=== PATIENT | female | born 2000 | race Caucasian/White ===

== ENCOUNTER 2025-02-24 13:40 | Outpatient (AMB) | payer BC, MEDICAID, SELFPAY ==
[2025-02-24 14:05] VITALS: BP 109/68; PULSE 68; RESP 16; TEMP 36.2; O2SAT 98; BMI 30.2
--- NOTE | 2025-02-24 14:05 | AMB.OBINITIA ---
Vital Signs 02/24/25 14:05 Height 1.5 m Height Method Stated Weight 68.039 kg Weight Measurement Method Standing Scale BMI 30.2 BP 109/68 Blood Pressure Source Automatic Cuff Blood Pressure Location Right Upper Arm Position Sitting Respiration 16 Pulse 68 Pulse Source Monitor Temp 97.1 F Temp Source Oral Pulse Oximetry (%) 98 Oxygen Delivery Method Room Air Allergies/Home Meds Allergies & Medications Allergies No Known Allergies Allergy (Verified 02/24/25 14:06) Medication Reconciliation No Known Home Medications 02/24/25 [History Confirmed 02/24/25] Intake Visit Data Collection New Patient or Established: New Patient (never been to [facility]) Reason for Visit:: INITIAL CARE Seen by Clinical Staff ONLY (RN/MA): No Camp Program Director Required: No Do You Feel Safe at Home: Yes Authorities Contacted: N/A PCP or OBGYN visit in last 3 months: No Hx Now: Yes Are you currently on any form of Control: No Last menstrual period: 11/06/24 Pain Present Currently: No Pain Scale Used: Paul-Lopez/Numerical Pain scale:: 0 Smoking Status Smoking Status: Never smoker Questionnaires Covid-19 Vaccine Questionnaire Has patient been vacinated for Covid-19 Have you been vacinated for Covid-19: Yes PHQ-9 PHQ-2 Over the last 2 weeks, how often have you been bothered by any of the following problems? 1. Little interest or pleasure in doing things: not at all 2. Feeling down, depressed, or hopeless: not at all Total score: 0 PHQ-9 3. Trouble falling or staying asleep, or sleeping too much: Not at all 4. Feeling tired or having little energy: Not at all 5. Poor appetite or overeating: Not at all 6. Feeling bad about yourself - or that you are a failure or have let yourself or your family down: Not at all 7. Trouble concentrating on things, such as reading the newspaper or watching television: Not at all 8. Moving or speaking so slowly that other people could have noticed? - Or the opposite - being so fidgety or restless that you have been moving around a lot more than usual: not at all 9. Thoughts that you would be better off or of hurting yourself in some way: Not at all Total score: 0 Source: Developed by Drs. Bennie Waldron, Linsey Pimentel, Garry Delgado and colleagues, with an educational khanh from [employer]. Depression screen completed yes Social History Living Situation History Marital Status: Single Lives With: Family Housing: House Housing Other:: Patient stays at home. She has a 9 y/o girl, and a 4 y/o son and 1 y/o son Tobacco History Smoking Status: Never smoker Second Hand Smoke Exposure: No Alcohol History Alcohol Intake: Never Domestic Abuse History Do You Feel Safe at Home: Yes History of Present Illness HPI Narrative The patient is a 24-year-old -0-0-3 history of vaginal delivery x 3 in the past delivered all her babies at [facility] and was my patient in [place]. She comes for a new OB. She is still breast-feeding her 8-month-old. She reports that food does not taste good. She is not vomiting a lot. She denies any vaginal bleeding or cramping. She does not really want to take any medication for her nausea. She is present with the father of the baby. OB Ultrasound Indication Indication: Size, dates, viability OB Ultrasound Ultrasound technique: transabdominal Gestational sac assessment: Presence, location, size, shape: Live intrauterine with a crown-rump length of 9.93 cm corresponding to 15 weeks 5 days. Cardiac activity noted at 147 bpm. Good movement noted. 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 She has a history of vaginal delivery x 3 in the past without complications. Her last baby was so fast she almost delivered in triage. Other Relevant History: Only significant for anxiety. OB Initial Visit OB Flowsheet OB Flowsheet Initial Weight: Not Recorded Date <del>?</del> EGA Weight BP Alb Glu CTX Pres Fundal ht FHR Mov Dilation Station Effacement Hx Notes Visit Note 02/24/25 <del>?</del> 15w 5d 68.039 kg 109/68 absent transverse 16 147 absent New OB visit. Patient has an 8-month at home and is not due for a Pap smear. No contractions or loss of fluids or vaginal bleeding. Mild nausea. Menstrual History Menstrual reliability: definite Flow: normal Menstrual regularity: regular Monthly: Yes Age at menarche: 11 On control pills at conception: No Date of positive home test: 12/28/24 Associated symptoms (LMP): Reports nausea, vomiting, fatigue and breast tenderness OB History : 4 Para: 3 Hx Total # of Abortions (Spontaneous & Elective): 0 # of Living Children: 3 Delivery History 1st : Child's name: HAYDEE date: 12/02/15 sex: female Delivery type: vaginal Delivery complications: NONE History of depression before or after : No 2nd : Child's name: CASSIUS date: 05/21/21 sex: male Delivery type: vaginal Delivery complications: NONE History of depression before or after : No 3rd : Child's name: JONO date: 06/16/24 sex: male Delivery type: vaginal Delivery complications: NONE History of depression before or after : No Infection History & Risk Evaluation History of STDs: none Genetic Screening & History Genetic Screening/Teratology Counseling - Includes patient, baby's father, or anyone in either family with: 1. Patient's age 35 years or older as of estimated date of delivery: No 2. Thalassemia (Ukrainian, Solomon Islander, Mediterranean, or Background); MCV less than 80: No 3. Neural Tube Defect (Meningomyelocele, Spina Bifida, or Anencephaly): No 4. Congenital Heart Defect: No 5. Down Syndrome: No 6. Tavo-Sachs (Ashkenazi Restorationism, Cajun, Pashto Aston): No 7. Deloris Disease (Ashkenazi Restorationism): No 8. Familial Dysautonomia (Ashkenazi Restorationism): No 9. Sickle Cell Disease or Trait (): No 10. Hemophilia or other blood disorders: No 11. Muscular Dystrophy: No 12. Cystic Fibrosis: No 13. Alexander's Chorea: No 14. Mental Retardation/Autism: No 15. Other inherited genetic or chromosomal disorder: No 16. Maternal Metabolic Disorder (EG,TYPE 1 Diabetes, PKU): No 17. Patient or baby's father had a child with defects not listed above: No 18. Recurrent loss or a stillbirth: No 19. Medications (including supplements, vitamins, herbs or otc drugs)/illicit/recreational drugs/alcohol since last menstrual period: No 20. Any other: No Infection History 1. Live with someone with TB or exposed to TB: No 2. Rash or viral illness since last menstrual period: No 3. Hepatitis B,C: No Other (see comments) Source: [employer] Review of Systems Constitutional Constitutional: Reports fatigue Gastrointestinal Gastrointestinal: Reports nausea and Reports vomiting Endocrine Endocrine: Reports fatigue Exam Narrative Physical exam: Pap and pelvic exam deferred until . General Limitations: no limitations General Appearance: alert, in no apparent distress, comfortable, cooperative, healthy appearing, well developed, well groomed and other (A little pale) Chest Chest inspection: Present normal inspection and symmetric chest wall rise Resp Respiratory exam: Present normal lung sounds bilaterally Card Cardiovascular exam: Present regular rate, normal rhythm and normal heart sounds Abdominal Abdominal exam: Present soft and normal bowel sounds Extremities Extremities exam: Present normal inspection and full ROM Psych Psychiatric exam: Present normal affect and normal mood Skin Skin exam: Present warm, dry, intact and normal color Office Procedures OB Clinic LOC & Office Proc's Nursing/Assessment Patient Status: Initial/New Patient OB Clinic Nursing Assessment: Medication Reconciliation, Update PMH in EMR and Vital Signs OB Clinic Coordination of Care: Complex Care and Chronic Disease 1-5, Consent,records obtained, informed consent, Education Simp Pt/Fam, Lab and Imaging orders, Results/Orders obtained and Staff clarify orders Special Needs: Heart tones Miscellaneous Interventions: Pelvic/Pap Smear Set up New Patient Charge New Patient Point Assignment: [id number] New Patient Point Charge: ENGINEERING WRITER Level 4 ([id number]) In Clinic Procedures Pap Smear: Yes Bedside Ultrasounds US Transvaginal at bedside: Yes Assessment & Plan Diagnosis / Problem List (1) : Status: Acute Qualifiers: Weeks of gestation: 15 weeks Qualified Code(s): Z3A.15 - 15 weeks gestation of Assessment and Plan: Ordered labs. Ordered GC chlamydia off urine. Start vitamins. Hold on iron right now as patient is nauseous. Encourage frequent small meals. Offered antiemetics for nausea. Patient declines. Encouraged extra 800 remy a day with and breast-feeding in order to make adequate milk. Offered NIPT which patient declines. Follow-up in 4 weeks.
== END 2025-02-24 14:44 | disposition home or self-care (01) ==
LOC: HODSOBC 13:40
PROVIDERS: PCP Obstetrics & Gynecology; Referring Provider Obstetrics & Gynecology; Supervising Provider Obstetrics & Gynecology; Visit Provider Obstetrics & Gynecology
DX: Z34.82 Encounter for supervision of other normal pregnancy, second trimester (principal); Z3A.15 15 weeks gestation of pregnancy
CPT/HCPCS: 76817; 99204; Q0091; G0463

== ENCOUNTER 2025-03-31 13:24 | Outpatient (AMB) | payer MEDICAID, SELFPAY ==
[2025-03-31 13:36] VITALS: BP 108/73; PULSE 96; RESP 18; TEMP 36.5; O2SAT 96; BMI 31.5
--- NOTE | 2025-03-31 13:36 | OBCLNT_ITS ---
Vital Signs 03/31/25 13:36 Height 1.5 m Height Method Stated Weight 70.931 kg Weight Measurement Method Standing Scale BMI 31.5 BP 108/73 Blood Pressure Source Automatic Cuff Blood Pressure Location Left Upper Arm Position Sitting Respiration 18 Pulse 96 Pulse Source Monitor Temp 97.7 F Temp Source Oral Pulse Oximetry (%) 96 Oxygen Delivery Method Room Air Allergies/Home Meds Allergies & Medications Allergies No Known Allergies Allergy (Verified 03/31/25 13:40) Medication Reconciliation No Known Home Medications 02/24/25 [History Confirmed 03/31/25] Intake Visit Data Collection New Patient or Established: Established Patient (seen at [facility] within 3 years) Reason for Visit:: care Seen by Clinical Staff ONLY (RN/MA): No Clipper And Turner Required: No Do You Feel Safe at Home: Yes Authorities Contacted: N/A PCP or OBGYN visit in last 3 months: Yes Hx Now: Yes Are you currently on any form of Control: No Pain Present Currently: No Pain Scale Used: Paul-Lopez/Numerical Pain scale:: 0 Smoking Status Smoking Status: Never smoker Questionnaires Covid-19 Vaccine Questionnaire Has patient been vacinated for Covid-19 Have you been vacinated for Covid-19: Yes PHQ-9 PHQ-2 Over the last 2 weeks, how often have you been bothered by any of the following problems? 1. Little interest or pleasure in doing things: not at all 2. Feeling down, depressed, or hopeless: not at all Total score: 0 PHQ-9 3. Trouble falling or staying asleep, or sleeping too much: Not at all 4. Feeling tired or having little energy: Not at all 5. Poor appetite or overeating: Not at all 6. Feeling bad about yourself - or that you are a failure or have let yourself or your family down: Not at all 7. Trouble concentrating on things, such as reading the newspaper or watching television: Not at all 8. Moving or speaking so slowly that other people could have noticed? - Or the opposite - being so fidgety or restless that you have been moving around a lot more than usual: not at all 9. Thoughts that you would be better off or of hurting yourself in some way: Not at all Total score: 0 Source: Developed by Drs. Bennie Waldron, Linsey Pimentel, Garry Delgado and colleagues, with an educational khanh from [employer]. Depression screen completed yes Social History Living Situation History Lives With: Family Housing: House Housing Other:: Patient stays at home. She has a 9 y/o girl, and a 4 y/o son and 1 y/o son Tobacco History Smoking Status: Never smoker Second Hand Smoke Exposure: No Alcohol History Alcohol Intake: Never Domestic Abuse History Do You Feel Safe at Home: Yes Care OB Visit Log OB Flowsheet Initial Weight: Not Recorded Date -?-?-?-?-?-?-?-?-?-?-?-?- EGA Weight BP Alb Glu CTX Pres Fundal ht FHR Mov Dilation Station Effacement Hx Notes Visit Note 02/24/25 -?-?-?-?-?-?-?-?-?-?-?-?- 15w 5d 68.039 kg 109/68 absent transverse 16 1 47 absent New OB visit. Patient has an 8-month at home and is not due for a Pap smear. No contractions or loss of fluids or vaginal bleeding. Mild nausea. 03/31/25 -?-?-?-?-?-?-?-?-?-?-?-?- 20w 5d 70.931 kg 108/73 absent 20 134 ac tive Positive movement no contractions no loss of fluids D eclined NIPT. Did not get labs drawn as she had not eaten. Will do them today. Structural survey ordered for [facility]. Labs ordered from [facility]. ERAN Calculator Estimated Delivery Date Method Current WG Current Estimate 08/13/25 Ultrasound #1 20w 5d Other Estimates 08/13/25 LMP (Certain) 20w 5d Expected Delivery Route/Plan -0-0-3 status post vaginal delivery x 3 in the past without complications. Smallest baby 5 pounds largest baby 7 pounds. She has 2 boys son and a girl at home Notes Visit Date: 02/24/25 Last Updated by: Sri Vidal (OB Clinic)MD New OB. Patient's LMP was 11/06/2024 EDC 08/13/2025. The patient declines NIPT. She is still breast-feeding her 8-month-old. Office Procedures OB Clinic LOC & Office Proc's Nursing/Assessment Patient Status: Established Patient OB Clinic Nursing Assessment: Medication Reconciliation, Update PMH in EMR and Vital Signs OB Clinic Coordination of Care: Complex Care and Chronic Disease 1-5, Consent,records obtained, informed consent, Education Simp Pt/Fam, Lab and Imaging orders, Results/Orders obtained and Staff clarify orders Special Needs: Heart tones Established Patient Charge Established Patient Point Assignment: 135 Established Patient Point Charge: EP Level 4 (120-155) Assessment & Plan Diagnosis / Problem List (1) : Status: Acute Qualifiers: Weeks of gestation: 20 weeks Qualified Code(s): Z3A.20 - 20 weeks gestation of
== END 2025-03-31 14:01 | disposition home or self-care (01) ==
LOC: HODSOBC 13:24
PROVIDERS: PCP Obstetrics & Gynecology; Referring Provider Obstetrics & Gynecology; Supervising Provider Obstetrics & Gynecology; Visit Provider Obstetrics & Gynecology
DX: Z34.82 Encounter for supervision of other normal pregnancy, second trimester (principal); Z3A.20 20 weeks gestation of pregnancy
CPT/HCPCS: 99214; G0463

== ENCOUNTER → 2025-05-04 | Outpatient (CLI) | payer MEDICAID, SELFPAY ==
--- NOTE | 2025-05-04 16:15 | XR_ITS ---
Examination: Complete OB ultrasound greater than 14 weeks Date and time of exam: May 04, 2025 1650 hours INDICATIONS: 20 week by history, supervision normal Findings: Viable intrauterine single fetus with single amniotic sac presentation breech Cardiac motion 158 BPM Placenta posterior grade 1 Umbilical cord insertion 3 vessel seen Amniotic fluid index 16.4 cm spine maternal left Cardiac motion 3.3 cm Ovaries obscured by bowel gas. Composite estimated gestational age based on BPD, head circumference, abdominal circumference, femur length is 26 weeks 0 days Estimated weight 867 g. Survey of intracranial anatomy, spinal anatomy, abdominal anatomy, four-chamber heart performed with no abnormalities identified. Impression: Viable intrauterine gestation breech presentation.
== END | disposition home or self-care (01) ==
LOC: CDIM 16:36
PROVIDERS: PCP Family Medicine; Referring Provider Obstetrics & Gynecology; Visit Provider Obstetrics & Gynecology
DX: O32.1XX0 Maternal care for breech presentation, not applicable or unspecified (principal); Z3A.20 20 weeks gestation of pregnancy
CPT/HCPCS: 76805

== ENCOUNTER 2025-05-13 10:29 | Outpatient (AMB) | payer MEDICAID, SELFPAY ==
[2025-05-13 10:38] VITALS: BP 122/84; PULSE 89; RESP 17; TEMP 36.4; O2SAT 98; BMI 33.9
--- NOTE | 2025-05-13 10:38 | OBCLNT_ITS ---
Vital Signs 05/13/25 10:38 Height 1.5 m Height Method Measured Weight 76.317 kg Weight Measurement Method Standing Scale BMI 33.9 BP 122/84 Blood Pressure Source Automatic Cuff Blood Pressure Location Right Upper Arm Position Sitting Respiration 17 Pulse 89 Pulse Source Monitor Temp 97.6 F Temp Source Temporal Artery Scan Pulse Oximetry (%) 98 Oxygen Delivery Method Room Air Allergies/Home Meds Allergies & Medications Allergies No Known Allergies Allergy (Verified 05/13/25 10:39) Medication Reconciliation No Known Home Medications 02/24/25 [History Confirmed 05/13/25] Intake Visit Data Collection New Patient or Established: Established Patient (seen at [facility] within 3 years) Reason for Visit:: OBC Consent obtained for Telemed Visit: No Seen by Clinical Staff ONLY (RN/MA): No Urology Physician Assistant Required: No Do You Feel Safe at Home: Yes Authorities Contacted: N/A PCP or OBGYN visit in last 3 months: Yes Date of Last PCP or OBGYN visit: 03/31/25 Hx Now: Yes Are you currently on any form of Control: No Pain Present Currently: No Pain Scale Used: Paul-Lopez/Numerical Pain scale:: 0 Smoking Status Smoking Status: Never smoker Questionnaires Covid-19 Vaccine Questionnaire Has patient been vacinated for Covid-19 Have you been vacinated for Covid-19: Yes PHQ-9 PHQ-2 Over the last 2 weeks, how often have you been bothered by any of the following problems? 1. Little interest or pleasure in doing things: not at all PHQ-9 8. Moving or speaking so slowly that other people could have noticed? - Or the opposite - being so fidgety or restless that you have been moving around a lot more than usual: not at all Source: Developed by Drs. Bennie Waldron, Linsey Pimentel, Garry Delgado and colleagues, with an educational khanh from [employer]. Social History Living Situation History Lives With: Family Housing: House Housing Other:: Patient stays at home. She has a 9 y/o girl, and a 4 y/o son and 1 y/o son Tobacco History Smoking Status: Never smoker Second Hand Smoke Exposure: No Alcohol History Alcohol Intake: Never Domestic Abuse History Do You Feel Safe at Home: Yes History of Present Illness HPI Narrative The patient is a 25-year-old -0-0-3 presents for care. Care OB Visit Log OB Flowsheet Initial Weight: Not Recorded Date -?-?-?-?-?-?-?-?-?-?-?-?- EGA Weight BP Alb Glu CTX Pres Fundal ht FHR Mov Dilation Station Effacement Hx Notes Visit Note 02/24/25 -?-?-?-?-?-?-?-?-?-?-?-?- 15w 5d 68.039 kg 109/68 absent transverse 16 1 47 absent New OB visit. Patient has an 8-month at home and is not due for a Pap smear. No contractions or loss of fluids or vaginal bleeding. Mild nausea. 03/31/25 -?-?-?-?--?-?-?-?-?-?-?-?- 20w 5d 70.931 kg 108/73 absent 20 134 ac tive Positive movement no contractions no loss of fluids D eclined NIPT. Did not get labs drawn as she had not eaten. Will do them today. Structural survey ordered for [facility]. Labs ordered from [facility]. 05/13/25 -?-?-?-?-?-?-?-?-?-?-?-?- 26w 6d 76.317 kg 122/84 absent 28 127 ac tive Patient reports good movement no contractions or loss of fluids. She was seen at [facility] recently for some cramping contractions. Sounds like they did a fibronectin. I am assuming it was negative this patient was discharged home. Sounds like she was given 1 dose of Procardia. We do not have records. She signed a release today. Labs chandni nicholson from [facility]. ERAN Calculator Estimated Delivery Date Method Current WG Current Estimate 08/13/25 Ultrasound #1 26w 6d Other Estimates 08/13/25 LMP (Certain) 26w 6d Expected Delivery Route/Plan -0-0-3 status post vaginal delivery x 3 in the past without complications. Smallest baby 5 pounds largest baby 7 pounds. She has 2 boys son and a girl at home Specific Issue/Plans Patient desires tubal ligation papers signed 05/13/2025. Notes Visit Date: 02/24/25 Last Updated by: Sri Vidal (OB Clinic), MD New OB. Patient's LMP was 11/06/2024 EDC 08/13/2025. The patient declines NIPT. She is still breast-feeding her 8-month-old. Office Procedures OB Clinic LOC & Office Proc's Nursing/Assessment Patient Status: Established Patient OB Clinic Nursing Assessment: Medication Reconciliation, Update PMH in EMR and Vital Signs OB Clinic Coordination of Care: Complex Care and Chronic Disease 1-5, Consent,records obtained, informed consent, Education Simp Pt/Fam and Results/Orders obtained Special Needs: Heart tones Established Patient Charge Established Patient Point Assignment: 110 Established Patient Point Charge: EP Level 3 (80-115)
== END 2025-05-13 11:39 | disposition home or self-care (01) ==
LOC: HODSOBC 10:29
PROVIDERS: Supervising Provider Obstetrics & Gynecology; Visit Provider Obstetrics & Gynecology
DX: Z34.82 Encounter for supervision of other normal pregnancy, second trimester (principal); Z3A.26 26 weeks gestation of pregnancy
CPT/HCPCS: 99213; G0463

== ENCOUNTER 2025-07-01 10:32 | Outpatient (AMB) | payer MEDICAID, SELFPAY ==
[2025-07-01 10:53] VITALS: BP 116/84; PULSE 99; RESP 20; TEMP 36.6; O2SAT 95; BMI 34.7
--- NOTE | 2025-07-01 10:53 | OBCLNT_ITS ---
Vital Signs 07/01/25 10:53 Height 1.5 m Height Method Stated Weight 78.131 kg Weight Measurement Method Standing Scale BMI 34.7 BP 116/84 Blood Pressure Source Automatic Cuff Blood Pressure Location Left Upper Arm Position Sitting Respiration 20 Pulse 99 Pulse Source Monitor Temp 97.8 F Temp Source Oral Pulse Oximetry (%) 95 Oxygen Delivery Method Room Air Allergies/Home Meds Allergies & Medications Allergies No Known Allergies Allergy (Verified 07/01/25 10:54) Medication Reconciliation No Known Home Medications 02/24/25 [History Confirmed 07/01/25] Intake Visit Data Collection New Patient or Established: Established Patient (seen at [facility] within 3 years) Reason for Visit:: Seen by Clinical Staff ONLY (RN/MA): No Tie Loader Required: No Do You Feel Safe at Home: Yes Authorities Contacted: N/A PCP or OBGYN visit in last 3 months: Yes Hx Now: Yes Are you currently on any form of Control: No Pain Present Currently: No Pain Scale Used: Paul-Lopez/Numerical Pain scale:: 0 Smoking Status Smoking Status: Never smoker Questionnaires Covid-19 Vaccine Questionnaire Has patient been vacinated for Covid-19 Have you been vacinated for Covid-19: Yes PHQ-9 PHQ-2 Over the last 2 weeks, how often have you been bothered by any of the following problems? 1. Little interest or pleasure in doing things: not at all 2. Feeling down, depressed, or hopeless: not at all Total score: 0 PHQ-9 3. Trouble falling or staying asleep, or sleeping too much: Not at all 4. Feeling tired or having little energy: Not at all 5. Poor appetite or overeating: Not at all 6. Feeling bad about yourself - or that you are a failure or have let yourself or your family down: Not at all 7. Trouble concentrating on things, such as reading the newspaper or watching television: Not at all 8. Moving or speaking so slowly that other people could have noticed? - Or the opposite - being so fidgety or restless that you have been moving around a lot more than usual: not at all 9. Thoughts that you would be better off or of hurting yourself in some way: Not at all Total score: 0 Source: Developed by Drs. Bennie LLinsey Webb Kurt Kroenke and colleagues, with an educational khanh from [employer]. Depression screen completed yes Social History Living Situation History Lives With: Family Housing: House Housing Other:: Patient stays at home. She has a 9 y/o girl, and a 4 y/o son and 1 y/o son Tobacco History Smoking Status: Never smoker Second Hand Smoke Exposure: No Alcohol History Alcohol Intake: Never Domestic Abuse History Do You Feel Safe at Home: Yes Care OB Visit Log OB Flowsheet Initial Weight: Not Recorded Date -?-?-?-?-?-?-?-?-?-?-?-?- EGA Weight BP Alb Glu CTX Pres Fundal ht FHR Mov Dilation Station Effacement Hx Notes Visit Note 02/24/25 -?-?-?-?--?-?-?-?-?-?-?-?- 15w 5d 68.039 kg 109/68 absent transverse 16 1 47 absent New OB visit. Patient has an 8-month at home and is not due for a Pap smear. No contractions or loss of fluids or vaginal bleeding. Mild nausea. 03/31/25 -?-?-?-?-?-?-?-?-?-?-?-?- 20w 5d 70.931 kg 108/73 absent 20 134 ac tive Positive movement no contractions no loss of fluids D eclined NIPT. Did not get labs drawn as she had not eaten. Will do them today. Structural survey ordered for [facility]. Labs ordered from [facility]. 05/13/25 -?-?-?-?-?-?-?-?-?-?-?-?- 26w 6d 76.317 kg 122/84 absent 28 127 ac tive Patient reports good movement no contractions or loss of fluids. She was seen at [facility] recently for some cramping contractions. Sounds like they did a fibronectin. I am assuming it was negative this patient was discharged home. Sounds like she was given 1 dose of Procardia. We do not have records. She signed a release today. Labs chandni nicholson from [facility]. 07/01/25 -?-?-?-?-?-?-?-?-?-?-?-?- 33w 6d 78.131 kg 116/84 absent unknown 34 145 active Good movement no contractions or loss of fluids. labs drawn at [facility] urinalysis still pending. They were just drawn yesterday. Normal glucose challenge test of 107. REAN Calculator Estimated Delivery Date Method Current WG Current Estimate 08/13/25 Ultrasound #1 34w 2d Other Estimates 08/13/25 LMP (Certain) 34w 2d Expected Delivery Route/Plan -0-0-3 status post vaginal delivery x 3 in the past without complications. Smallest baby 5 pounds largest baby 7 pounds. She has 2 boys son and a girl at home Specific Issue/Plans Patient desires tubal ligation papers signed 05/13/2025. labs: O+ /antibody screen negative/ HIV negative /rubella immune /RPR nonreactive/ pending hepatitis C /pending hepatitis B surface antigen/pending GC chlamydia /pending urine culture. 1 hour glucose 107 DECLINED NIPT Notes Visit Date: 07/01/25 Last Updated by: Sri Vidal (OB Clinic)MD Last baby patient walked in the hospital 6 cm and delivered very rapidly. She might not make it all the way to [place]. The plan will be to have her sign a release of medical records to copy her own records to bring in with her if she ends up delivering in [place]. Visit Date: 02/24/25 Last Updated by: Sri Vidal (OB Clinic)MD [facility]. Patient's LMP was 11/06/2024 EDC 08/13/2025. The patient declines NIPT. She is still breast-feeding her 8-month-old. Office Procedures OBC Clinic LOC & Office Proc's Nursing/Assessment Patient Status: Established Patient OB Clinic Nursing Assessment: Medication Reconciliation, Update PMH in EMR and Vital Signs OB Clinic Coordination of Care: Complex Care and Chronic Disease 1-5, Consent,records obtained, informed consent, Education Simp Pt/Fam, Lab and Imaging orders, Results/Orders obtained and Staff clarify orders Special Needs: Heart tones Established Patient Charge Established Patient Point Assignment: 135 Established Patient Point Charge: EP Level 4 (120-155) Assessment & Plan Diagnosis / Problem List (1) : Status: Acute Qualifiers: Weeks of gestation: 34 weeks Qualified Code(s): Z3A.34 - 34 weeks gestation of Additional Plan Follow Up: 2 Weeks
== END 2025-07-01 11:02 | disposition home or self-care (01) ==
LOC: HODSOBC 10:32
PROVIDERS: Supervising Provider Obstetrics & Gynecology; Visit Provider Obstetrics & Gynecology
DX: Z34.83 Encounter for supervision of other normal pregnancy, third trimester (principal); Z3A.33 33 weeks gestation of pregnancy
CPT/HCPCS: 99214; G0463

== ENCOUNTER 2025-07-17 08:45 | Outpatient (AMB) | payer MEDICAID, SELFPAY ==
--- NOTE | 2025-07-17 08:52 | OBCLNT_ITS ---
Vital Signs 07/17/25 09:00 Height 1.5 m Height Method Stated Weight 79.152 kg Weight Measurement Method Standing Scale BMI 35.2 BP 111/75 Blood Pressure Source Automatic Cuff Blood Pressure Location Left Upper Arm Position Sitting Respiration 16 Pulse 89 Pulse Source Monitor Temp 97.6 F Temp Source Oral Pulse Oximetry (%) 97 Oxygen Delivery Method Room Air Allergies/Home Meds Allergies & Medications Allergies No Known Allergies Allergy (Verified 07/17/25 09:01) Medication Reconciliation No Known Home Medications 02/24/25 [History Confirmed 07/17/25] Intake Visit Data Collection New Patient or Established: Established Patient (seen at [facility] within 3 years) Reason for Visit:: CARE Seen by Clinical Staff ONLY (RN/MA): No Aging Room Operator Required: No Do You Feel Safe at Home: Yes Authorities Contacted: N/A PCP or OBGYN visit in last 3 months: Yes Hx Now: Yes Are you currently on any form of Control: No Pain Present Currently: No Pain Scale Used: Paul-Lopez/Numerical Pain scale:: 0 Smoking Status Smoking Status: Never smoker Questionnaires Covid-19 Vaccine Questionnaire Has patient been vacinated for Covid-19 Have you been vacinated for Covid-19: No PHQ-9 PHQ-2 Over the last 2 weeks, how often have you been bothered by any of the following problems? 1. Little interest or pleasure in doing things: not at all 2. Feeling down, depressed, or hopeless: not at all Total score: 0 PHQ-9 3. Trouble falling or staying asleep, or sleeping too much: Not at all 4. Feeling tired or having little energy: Not at all 5. Poor appetite or overeating: Not at all 6. Feeling bad about yourself - or that you are a failure or have let yourself or your family down: Not at all 7. Trouble concentrating on things, such as reading the newspaper or watching television: Not at all 8. Moving or speaking so slowly that other people could have noticed? - Or the opposite - being so fidgety or restless that you have been moving around a lot more than usual: not at all 9. Thoughts that you would be better off or of hurting yourself in some way: Not at all Total score: 0 Source: Developed by Linsey FontenotW. Margarito, Garry Delgado and colleagues, with an educational khanh from [employer]. Depression screen completed yes Social History Living Situation History Lives With: Family Housing: House Housing Other:: Patient stays at home. She has a 9 y/o girl, and a 4 y/o son and 1 y/o son Tobacco History Smoking Status: Never smoker Second Hand Smoke Exposure: No Alcohol History Alcohol Intake: Never Domestic Abuse History Do You Feel Safe at Home: Yes Care OB Visit Log OB Flowsheet Initial Weight: Not Recorded Date -?-?-?-?-?-?-?-?-?-?-?-?- EGA Weight BP Alb Glu CTX Pres Fundal ht FHR Mov Dilation Station Effacement Hx Notes Visit Note 02/24/25 -?-?-?-?-?-?-?-?-?-?-?-?- 15w 5d 68.039 kg 109/68 absent transverse 16 1 47 absent New OB visit. Patient has an 8-month at home and is not due for a Pap smear. No contractions or loss of fluids or vaginal bleeding. Mild nausea. 03/31/25 -?-?-?-?-?-?-?-?-?-?-?-?- 20w 5d 70.931 kg 108/73 absent 20 134 ac tive Positive movement no contractions no loss of fluids D eclined NIPT. Did not get labs drawn as she had not eaten. Will do them today. Structural survey ordered for [facility]. Labs ordered from [facility]. 05/13/25 -?-?-?-?-?-?-?-?-?-?-?-?- 26w 6d 76.317 kg 122/84 absent 28 127 ac tive Patient reports good movement no contractions or loss of fluids. She was seen at [facility] recently for some cramping contractions. Sounds like they did a fibronectin. I am assuming it was negative this patient was discharged home. Sounds like she was given 1 dose of Procardia. We do not have records. She signed a release today. Labs chandni nicholson from [facility]. 07/01/25 -?-?-?-?-?-?-?-?-?-?-?-?- 33w 6d 78.131 kg 116/84 absent unknown 34 145 active Good movement no contractions or loss of fluids. labs drawn at [facility] urinalysis still pending. They were just drawn yesterday. Normal glucose challenge test of 107. 07/17/25 -?-?-?-?-?-?-?-?-?-?-?-?- 36w 1d 79.152 kg 111/75 occasional cephalic 35 156 active 0.5 70 -2 Good movement no contractions no loss of fluids Group B strep done today. ERAN Calculator Estimated Delivery Date Method Current WG Current Estimate 08/13/25 Ultrasound #1 36w 1d Other Estimates 08/13/25 LMP (Certain) 36w 1d Expected Delivery Route/Plan -0-0-3 status post vaginal delivery x 3 in the past without complications. Smallest baby 5 pounds largest baby 7 pounds. She has 2 boys son and a girl at home Specific Issue/Plans Patient desires tubal ligation papers signed 05/13/2025. labs: O+ /antibody screen negative/ HIV negative /rubella immune /RPR nonreactive/ pending hepatitis C /pending hepatitis B surface antigen/pending GC chlamydia /pending urine culture. 1 hour glucose 107 DECLINED NIPT Notes Visit Date: 07/17/25 Last Updated by: Sri Vidal (OB Clinic)MD labs from [facility] reviewed: A positive/antibody negative /rubella immune /RPR nonreactive /hepatitis B surface antigen negative/ hep C negative/ HIV negative/ GC negative /Chlamydia negative/ hemoglobin 10.8 hematocrit 35/ urine culture/ 1-hour glucose 107. Visit Date: 07/01/25 Last Updated by: Sri Vidal (OB Clinic)MD Last baby patient walked in the hospital 6 cm and delivered very rapidly. She might not make it all the way to [place]. The plan will be to have her sign a release of medical records to copy her own records to bring in with her if she ends up delivering in [place]. Visit Date: 02/24/25 Last Updated by: Sri Vidal (OB Clinic)MD [facility]. Patient's LMP was 11/06/2024 EDC 08/13/2025. The patient declines NIPT. She is still breast-feeding her 8-month-old. Office Procedures OBC Clinic LOC & Office Proc's Nursing/Assessment Patient Status: Established Patient OB Clinic Nursing Assessment: Medication Reconciliation, Update PMH in EMR and Vital Signs OB Clinic Coordination of Care: Complex Care and Chronic Disease 1-5, Consent,records obtained, informed consent, Education Simp Pt/Fam, Lab and Imaging orders, Results/Orders obtained and Staff clarify orders Special Needs: Heart tones Miscellaneous Interventions: Culture Specimen Collection Established Patient Charge Established Patient Point Assignment: 150 Established Patient Point Charge: EP Level 4 (120-155) Assessment & Plan Diagnosis / Problem List (1) : Status: Acute Qualifiers: Weeks of gestation: 36 weeks Qualified Code(s): Z3A.36 - 36 weeks gestation of
[2025-07-17 09:00] VITALS: BP 111/75; PULSE 89; RESP 16; TEMP 36.4; O2SAT 97; BMI 35.2
== END 2025-07-17 09:41 | disposition home or self-care (01) ==
LOC: HODSOBC 08:45
PROVIDERS: Supervising Provider Obstetrics & Gynecology; Visit Provider Obstetrics & Gynecology
DX: Z34.83 Encounter for supervision of other normal pregnancy, third trimester (principal); Z3A.36 36 weeks gestation of pregnancy; Z36.85 Encounter for antenatal screening for Streptococcus B
CPT/HCPCS: 99214; G0463

== ENCOUNTER 2025-07-22 10:33 | Outpatient (AMB) | payer MEDICAID, SELFPAY ==
[2025-07-22 10:49] VITALS: BP 120/81; PULSE 77; RESP 16; TEMP 36.4; O2SAT 98; BMI 35.7
--- NOTE | 2025-07-22 10:49 | OBCLNT_ITS ---
Vital Signs 07/22/25 10:49 Height 1.5 m Height Method Stated Weight 80.456 kg Weight Measurement Method Standing Scale BMI 35.7 BP 120/81 Blood Pressure Source Automatic Cuff Blood Pressure Location Right Upper Arm Position Sitting Respiration 16 Pulse 77 Pulse Source Monitor Temp 97.5 F Temp Source Temporal Artery Scan Pulse Oximetry (%) 98 Oxygen Delivery Method Room Air Allergies/Home Meds Allergies & Medications Allergies No Known Allergies Allergy (Verified 07/22/25 10:51) Medication Reconciliation No Known Home Medications 02/24/25 [History Confirmed 07/22/25] Intake Visit Data Collection New Patient or Established: Established Patient (seen at [facility] within 3 years) Reason for Visit:: OBC Seen by Clinical Staff ONLY (RN/MA): No Commercial Credit Officer Required: No Do You Feel Safe at Home: Yes Authorities Contacted: N/A PCP or OBGYN visit in last 3 months: Yes Date of Last PCP or OBGYN visit: 07/17/25 Hx Now: Yes Are you currently on any form of Control: No Pain Present Currently: No Pain Scale Used: Paul-Lopez/Numerical Pain scale:: 0 Smoking Status Smoking Status: Never smoker Immunizations Flu Vaccine in the Last 12 Months: No Questionnaires Covid-19 Vaccine Questionnaire Has patient been vacinated for Covid-19 Have you been vacinated for Covid-19: No PHQ-9 PHQ-2 Over the last 2 weeks, how often have you been bothered by any of the following problems? 1. Little interest or pleasure in doing things: not at all 2. Feeling down, depressed, or hopeless: not at all Total score: 0 PHQ-9 3. Trouble falling or staying asleep, or sleeping too much: Not at all 4. Feeling tired or having little energy: Not at all 5. Poor appetite or overeating: Not at all 6. Feeling bad about yourself - or that you are a failure or have let yourself or your family down: Not at all 7. Trouble concentrating on things, such as reading the newspaper or watching television: Not at all 8. Moving or speaking so slowly that other people could have noticed? - Or the opposite - being so fidgety or restless that you have been moving around a lot more than usual: not at all 9. Thoughts that you would be better off or of hurting yourself in some way: Not at all Total score: 0 If you checked off any problems, how difficult have these problems made it for you to do your work, take care of things at home, or get along with other people?: not difficult at all Source: Developed by Drs. Bennie Waldron, Linsey Pimentel, Garry Delgado and colleagues, with an educational khanh from [employer]. Depression screen completed yes Social History Living Situation History Lives With: Family Housing: House Housing Other:: Patient stays at home. She has a 9 y/o girl, and a 4 y/o son and 1 y/o son Tobacco History Smoking Status: Never smoker Second Hand Smoke Exposure: No Alcohol History Alcohol Intake: Never Domestic Abuse History Do You Feel Safe at Home: Yes Review of Systems Review of Systems Systems Reviewed: All systems reviewed, normal except as documented Care OB Visit Log OB Flowsheet Initial Weight: Not Recorded Date -?-?-?-?-?-?-?-?-?-?-?-?- EGA Weight BP Alb Glu CTX Pres Fundal ht FHR Mov Dilation Station Effacement Hx Notes Visit Note 02/24/25 -?-?-?-?-?-?-?-?-?-?-?-?- 15w 5d 68.039 kg 109/68 absent transverse 16 1 47 absent New OB visit. Patient has an 8-month at home and is not due for a Pap smear. No contractions or loss of fluids or vaginal bleeding. Mild nausea. 03/31/25 -?-?-?-?-?-?-?-?-?-?-?-?- 20w 5d 70.931 kg 108/73 absent 20 134 ac tive Positive movement no co ntractions no loss of fluids Dec lined NIPT. Did not get labs drawn as she had not eaten. Will do them today. Structural survey ordered for [facility]. Labs ordered from [facility]. 05/13/25 -?-?-?-?-?-?-?-?-?-?-?-?- 26w 6d 76.317 kg 122/84 absent 28 127 ac tive Patient reports good movement no contractions or loss of fluids. She was seen at [facility] recently for some cramping contractions. Sounds like they did a fibronectin. I am assuming it was negative this patient was discharged home. Sounds like she was given 1 dose of Procardia. We do not have records. She signed a release today. Labs chandni bharat from [facility]. 07/01/25 -?-?-?-?-?-?-?-?-?-?-?-?- 33w 6d 78.131 kg 116/84 absent unknown 34 145 active Good movement no contractions or loss of fluids. labs drawn at [facility] urinalysis still pending. They were just drawn yesterday. Normal glucose challenge test of 107. 07/17/25 -?-?-?-?-?-?-?-?-?-?-?-?- 36w 1d 79.152 kg 111/75 occasional cephalic 35 156 active 0.5 70 -2 Good movement no contractions no loss of fluids Group B strep done today. 07/22/25 -?-?-?-?-?-?-?-?-?-?-?-?- 36w 6d 80.456 kg 120/81 absent cephalic 36 147 active active movements follow up in one week plan pelvic exam next visit ERAN Calculator Estimated Delivery Date Method Current WG Current Estimate 08/13/25 Ultrasound #1 36w 6d Other Estimates 08/13/25 LMP (Certain) 36w 6d Expected Delivery Route/Plan -0-0-3 status post vaginal delivery x 3 in the past without complications. Smallest baby 5 pounds largest baby 7 pounds. She has 2 boys son and a girl at home Specific Issue/Plans Patient desires tubal ligation papers signed 05/13/2025. labs: O+ /antibody screen negative/ HIV negative /rubella immune /RPR nonreactive/ pending hepatitis C /pending hepatitis B surface antigen/pending GC chlamydia /pending urine culture. 1 hour glucose 107 DECLINED NIPT Notes Visit Date: 07/22/25 Last Updated by: Radha Yu MD at 36.6 weeks BTL consent signed 05/13/2025 / patient given GBS results and are negative / labor precautions given She plans to deliver at [facility] / follow up here for for care in one week Visit Date: 07/17/25 Last Updated by: Sri Vidal (OB Clinic)MD labs from [facility] reviewed: A positive/antibody negative /rubella immune /RPR nonreactive /hepatitis B surface antigen negative/ hep C negative/ HIV negative/ GC negative /Chlamydia negative/ hemoglobin 10.8 hematocrit 35/ urine culture/ 1-hour glucose 107. Visit Date: 07/01/25 Last Updated by: Sri Vidal (OB Clinic)MD Last baby patient walked in the hospital 6 cm and delivered very rapidly. She might not make it all the way to [place]. The plan will be to have her sign a release of medical records to copy her own records to bring in with her if she ends up delivering in [place]. Visit Date: 02/24/25 Last Updated by: Sri Vidal (OB Clinic)MD [facility]. Patient's LMP was 11/06/2024 EDC 08/13/2025. The patient declines NIPT. She is still breast-feeding her 8-month-old. Exam Narrative Physical exam: Alert and oriented x 3 no shortness of breath Pain no chest pain no palpitations Chest clear bilaterally no additional sounds, no wheezing no rales CVS regular rate and rhythm No CVAT Abdomen nontender, normal bowel sounds No guarding no rigidity No hernias Office Procedures OBC Clinic LOC & Office Proc's Nursing/Assessment Patient Status: Established Patient OB Clinic Nursing Assessment: Medication Reconciliation, Update PMH in EMR and Vital Signs OB Clinic Coordination of Care: Complex Care and Chronic Disease 1-5, Education Complex Pt/Fam, Consent,records obtained, informed consent, Lab and Imaging orders, Results/Orders obtained and Staff clarify orders Special Needs: Heart tones Established Patient Charge Established Patient Point Assignment: 140 Established Patient Point Charge: EP Level 4 (120-155) Assessment & Plan Diagnosis / Problem List Plan Assessment IUP at 36.6 gestational age in a 25 years old additional diagnoses GBS negative Plan labs GBS results reviewed and are negative education/counselling FKCounts / labor precautions medications continue PNV If plans to deliver at [facility] to take her ob records and carry with her Follow up 1 week Additional Plan Follow Up: 1 Week
== END 2025-07-22 11:39 | disposition home or self-care (01) ==
LOC: HODSOBC 10:33
PROVIDERS: Supervising Provider Obstetrics & Gynecology; Visit Provider Obstetrics & Gynecology
DX: Z34.83 Encounter for supervision of other normal pregnancy, third trimester (principal); Z3A.36 36 weeks gestation of pregnancy
CPT/HCPCS: 99214; G0463